=== PATIENT | male | born 1950 | race Two or more races ===

== ENCOUNTER 2017-07-29 05:56 | Inpatient (IN) | payer BC, MEDICARE ==
[2017-07-26 13:54] LABS: HEMATOCRIT 42.2 % (39.2-51.8); HEMOGLOBIN 13.8 g/dL (13.7-18.0); WHITE BLOOD COUNT 8.1 x10^3/uL (3.4-10)
[2017-07-26 14:05] LABS: BLOOD UREA NITROGEN 11 mg/dL (7-18)
[2017-07-26 14:08] LABS: ASPARTATE AMINO TRANSFERASE 13 U/L (15-37)
[~2017-07-29] VITALS: Ht 172.7 cm; Wt 68.0 kg
[~2017-07-29 05:56] MED LIST: ASPI-496 PO; ATOR20TA PO; CLOP75TA52 PO; LOSA25TA5 PO; METF500T4 PO
[2017-07-29] MEDS ORDERED: LACTATED RINGERS 1,000 ML IV SCH (06:42)
[2017-07-29] MEDS ORDERED: THROMBIN 20,000 UNIT VIAL TP ONE (06:52)
[2017-07-29] MEDS ORDERED: BUPIVACAINE/PF 0.5% ONE (06:52)
[2017-07-29] MEDS ORDERED: LIDOCAINE 1%, 50ML ONE (06:52)
[2017-07-29] MEDS ORDERED: PAPAVERINE 30 MG/ML, 2ML ONE (06:52)
[2017-07-29] MEDS ORDERED: HEPARIN 1,000 UNITS/ML, 10ML ONE (06:52)
[2017-07-29] MEDS ORDERED: PROTAMINE SULFATE 10 MG/ML, 5ML ONE (06:52)
[2017-07-29] MEDS ORDERED: EPINEPHRINE 1 MG/ML, 1ML ONE (06:52)
[2017-07-29] MEDS ORDERED: BACITRACIN 50,000 UNIT ONE (06:53)
[2017-07-29] MEDS ORDERED: FLU VACC QS2017-18 (36MOS+) UP/PF 0.5 ML IM-VACC ONE (07:00)
[2017-07-29] MEDS ORDERED: PNEUMOCOCCAL 23 VACCINE IM-VACC ONE (07:00)
[2017-07-29] MEDS ORDERED: FENTANYL PF 250 MCG/5ML ONE (07:06)
[2017-07-29] MEDS ORDERED: REMIFENTANIL 2 MG ONE ×2 (07:14→09:30)
[2017-07-29] MEDS ORDERED: PHENYLEPHRINE 10 MG/ML ONE (07:44)
[2017-07-29] MEDS ORDERED: HEPARIN 1,000 UNITS/ML, 10ML IV ONE (08:26)
[2017-07-29] MEDS ORDERED: PROMETHAZINE 25 MG/ML, 1ML IV PRN (08:30)
[2017-07-29] MEDS ORDERED: MEPERIDINE/PF 25MG/0.5ML IVPush PRN (08:30)
[2017-07-29] MEDS ORDERED: ALBUTEROL SULFATE 2.5 MG/3 ML NPPB PRN (08:30)
[2017-07-29] MEDS ORDERED: LORazepam 2 MG/ML, 1ML IVPush PRN (08:30)
[2017-07-29] MEDS ORDERED: HYDROmorphone 1 MG/ML, 1ML IV PRN (08:30)
[2017-07-29] MEDS ORDERED: hydrALAzine 20 MG/ML, 1ML IV PRN (08:30)
[2017-07-29] MEDS ORDERED: ACETAMINOPHEN 325 MG TABLET PO PRN ×2 (08:30→14:00)
[2017-07-29] MEDS ORDERED: OXYcodone 5 MG/5 ML ORAL.SOL UDC PO PRN (08:30)
[2017-07-29] MEDS ORDERED: LABETALOL 5MG/ML, 20ML IV PRN (08:30)
[2017-07-29] MEDS ORDERED: GLYCOPYRROLATE 0.2MG/1ML, 5ML ONE (09:56)
[2017-07-29] MEDS ORDERED: SUCCINYLCHOLINE 20 MG/ML, 10ML ONE (09:56)
[2017-07-29] MEDS ORDERED: DEXAMETHASONE 4 MG/ML, 1ML ONE (09:56)
[2017-07-29] MEDS ORDERED: PROPOFOL 10 MG/ML, 20ML ONE (09:56)
[2017-07-29] MEDS ORDERED: CEFAZOLIN 1,000 MG ONE (09:56)
[2017-07-29] MEDS ORDERED: ONDANSETRON 2MG/ML, 2ML ONE (09:56)
[2017-07-29] MEDS ORDERED: ROCURONIUM 10 MG/ML,10ML ONE (09:56)
[2017-07-29] MEDS ORDERED: NEOSTIGMINE 1 MG/ML, 10ML ONE (09:56)
[2017-07-29] MEDS ORDERED: FENTANYL PF 100 MCG/2ML ONE (10:33)
[2017-07-29] MEDS ORDERED: ACETAMINOPHEN 325 MG TABLET ONE (10:33)
[2017-07-29] MEDS ORDERED: ACETAMINOPHEN 650 MG/20.3 ML UDC ONE (10:33)
[2017-07-29] MEDS ORDERED: OXYcodone 5 MG/5 ML ORAL.SOL UDC ONE (10:34)
[2017-07-29] MEDS: FENTANYL PF 100 MCG/2ML IV PRN ×4 (10:38→11:40)
[2017-07-29] MEDS ORDERED: hydrALAzine 20 MG/ML, 1ML ONE (10:44)
[2017-07-29 13:30] VITALS: BP 134/78
[2017-07-29] MEDS ORDERED: morphine SULFATE 10 MG/ML, 1ML IV PRN (14:00)
[2017-07-29] MEDS ORDERED: LABETALOL 5MG/ML, 20ML IVPush PRN (14:00)
[2017-07-29] MEDS ORDERED: PHENYLEPHRINE 10 MG in DEXTROSE 5% 249 ML IV SCH (14:00)
[2017-07-29] MEDS ORDERED: ONDANSETRON 2MG/ML, 2ML IV PRN (14:00)
[2017-07-29] MEDS ORDERED: NITROPRUSSIDE 50 MG in DEXTROSE 5% 248 ML IV SCH (14:00)
[2017-07-29] MEDS ORDERED: ENTER SLIDING SCALE INSULIN IF ORDERED XX PRN (14:00)
[2017-07-29] MEDS: D5%-0.45NACL+KCL 20MEQ 1,000 ML IV SCH (15:47)
[2017-07-29] MEDS: ENOXAPARIN 40 MG/0.4 ML SQ SCH (15:48)
[2017-07-29] MEDS: INSULIN REGULAR, HUMAN 100 UNIT/ML 3ML VIAL LOW DOSE SS SQ-INSULIN SCH ×2 (15:50→22:00)
[2017-07-29] MEDS: HYDROcodone/APAP 5/325 TABLET PO PRN (20:11)
[2017-07-29 20:32] VITALS: BP 134/74
[2017-07-29] MEDS ORDERED: ATORVASTATIN 20 MG TABLET PO SCH (21:00)
[2017-07-29] MEDS: SODIUM CHLORIDE FLUSH 10ML SYR IVF SCH (21:00)
[2017-07-29] MEDS: LOSARTAN 25MG TABLET PO SCH (22:16)
[2017-07-29 22:20] VITALS: BP 154/73
[2017-07-30] MEDS: D5%-0.45NACL+KCL 20MEQ 1,000 ML IV SCH ×2 (00:30→10:38)
[2017-07-30 01:34] VITALS: BP 162/78
[2017-07-30] MEDS: HYDROcodone/APAP 5/325 TABLET PO PRN ×4 (01:39→16:06)
[2017-07-30 02:38] VITALS: BP 157/77
[2017-07-30 05:09] VITALS: BP 122/60
[2017-07-30] MEDS ORDERED: ASPIRIN 81 MG TABLET EC PO SCH (06:00)
[2017-07-30] MEDS: INSULIN REGULAR, HUMAN 100 UNIT/ML 3ML VIAL LOW DOSE SS SQ-INSULIN SCH ×3 (07:09→16:18)
[2017-07-30 07:58] VITALS: BP 131/70
[2017-07-30] MEDS: LOSARTAN 25MG TABLET PO SCH (08:43)
[2017-07-30] MEDS: SODIUM CHLORIDE FLUSH 10ML SYR IVF SCH (08:55)
[2017-07-30] MEDS ORDERED: CLOPIDOGREL 75 MG TABLET PO SCH (09:00)
[2017-07-30 12:02] VITALS: BP 146/74
[2017-07-30] MEDS: ENOXAPARIN 40 MG/0.4 ML SQ SCH (16:07)
[2017-07-30] MEDS ORDERED: HYDR-3240 PO (18:38)
[2017-07-30] MEDS ORDERED: ONDA4TAB7 PO (18:39)
[2017-07-30] MEDS ORDERED: DOCU-131 PO (18:39)
[2017-07-30 19:14] VITALS: BP 173/76
== END 2017-07-30 19:25 | disposition home or self-care (01) | DRG 39 ==
LOC: ORIP 05:56 → EDSTATUS 07:30 → 4NOR 13:11
PROVIDERS: ADMIT Surgery; ATTEND Surgery
PROC: 03UL0JZ Supplement Left Internal Carotid Artery with Synthetic Substitute, Open Approach (ICD-10-PCS; 2017-07-29)
PROC: 03CL0ZZ Extirpation of Matter from Left Internal Carotid Artery, Open Approach (ICD-10-PCS; principal; 2017-07-29 07:30)
DX: I65.22 Occlusion and stenosis of left carotid artery (principal); E11.9 Type 2 diabetes mellitus without complications; I10 Essential (primary) hypertension; Z86.73 Personal history of transient ischemic attack (TIA), and cerebral infarction without residual deficits; Z90.49 Acquired absence of other specified parts of digestive tract
CPT/HCPCS: 36415; 80053; 82962; 85025; 86850; 86900; 93005; 95938; 95941; J0171; J0690; J1100; J1644; J1650; J1815; J2405; J2704; J2710; J2720; J3010; J3490; C1768; J0330; J0360; J2270; J2370; J2440; J3480; J7120

== ENCOUNTER → 2018-08-28 | Outpatient (CLI) | payer MEDICARE, OTHER ==
[~2018-08-28] MED LIST changes: +AMLO-150 PO; +DOCU-131 PO; +HYDR-3240 PO; +LOSA25TA25 PO; -LOSA25TA5 PO; +METF500T17 PO; -METF500T4 PO; +MULT-718 PO; +ONDA4TAB7 PO
[2018-08-28 11:55] LABS: ALBUMIN 3.8 g/dL (3.4-5.0); ANION GAP 8 mmol/L (5-15); CALCIUM 9.1 mg/dL (8.5-10.1); CHLORIDE 106 mmol/L (98-107)
[2018-08-28 11:59] LABS: ALANINE AMINOTRANSFERASE 27 U/L (12-78); ALKALINE PHOSPHATASE 46 U/L (45-117); BILIRUBIN,TOTAL 0.8 mg/dL (0.2-1.0); CREATININE 0.99 mg/dL (0.7-1.3); TOTAL PROTEIN 7.1 g/dL (6.4-8.2)
== END | disposition home or self-care (01) ==
LOC: STAR 10:44
PROVIDERS: ATTEND Surgery
DX: Z01.818 Encounter for other preprocedural examination (principal); K40.20 Bilateral inguinal hernia, without obstruction or gangrene, not specified as recurrent
CPT/HCPCS: 36415; 80053; 93005

== ENCOUNTER 2018-09-07 10:08 | Day surgery (SDC) | payer MEDICARE, OTHER ==
[2018-08-28 11:11] VITALS: BP 169/93
[~2018-09-07] VITALS: Ht 172.7 cm; Wt 70.0 kg
[~2018-09-07 10:08] MED LIST changes: +BUPIVACAINE/PF-EPI 0.5% 1:200K ONE
[2018-09-07] MEDS ORDERED: LACTATED RINGERS 1,000 ML IV SCH (10:30)
[2018-09-07] MEDS ORDERED: FENTANYL PF 250 MCG/5ML ONE (13:13)
[2018-09-07] MEDS ORDERED: DEXAMETHASONE 4 MG/ML, 1ML ONE (13:26)
[2018-09-07] MEDS ORDERED: ROCURONIUM 10MG/ML,5ML ONE (13:26)
[2018-09-07] MEDS ORDERED: CEFAZOLIN 1,000 MG ONE (13:26)
[2018-09-07] MEDS ORDERED: PROPOFOL 10 MG/ML, 20ML ONE (13:26)
[2018-09-07] MEDS ORDERED: ONDANSETRON 2MG/ML, 2ML ONE (13:51)
[2018-09-07] MEDS ORDERED: BUPIVACAINE/PF-EPI 0.5% 1:200K INFIL ONE (13:53)
[2018-09-07] MEDS ORDERED: BUPIVACAINE/PF-EPI 0.5% 1:200K ONE (13:59)
[2018-09-07] MEDS ORDERED: ONDANSETRON 2MG/ML, 2ML IV PRN (14:00)
[2018-09-07] MEDS ORDERED: hydrALAzine 20 MG/ML, 1ML IV PRN (14:00)
[2018-09-07] MEDS ORDERED: ACETAMINOPHEN 325 MG TABLET PO PRN (14:00)
[2018-09-07] MEDS ORDERED: MEPERIDINE/PF 25MG/0.5ML IVPush PRN (14:00)
[2018-09-07] MEDS ORDERED: FENTANYL PF 100 MCG/2ML IV PRN (14:00)
[2018-09-07] MEDS ORDERED: OXYcodone 5 MG/5 ML ORAL.SOL UDC PO PRN ×2 (14:00→14:30)
[2018-09-07] MEDS ORDERED: PROMETHAZINE 25 MG/ML, 1ML IV PRN (14:00)
[2018-09-07] MEDS ORDERED: HYDROmorphone 2 MG/ML, 1ML IVPush PRN (14:00)
[2018-09-07] MEDS ORDERED: LABETALOL 5MG/ML, 20ML IV PRN (14:00)
[2018-09-07] MEDS ORDERED: KETOROLAC 30 MG/1 ML ONE (14:02)
[2018-09-07] MEDS ORDERED: GLYCOPYRROLATE 0.4 MG/2 ML, 2ML ONE (14:14)
[2018-09-07] MEDS ORDERED: NEOSTIGMINE 1 MG/ML, 10ML ONE (14:14)
[2018-09-07] MEDS ORDERED: ONDANSETRON 2MG/ML, 2ML IVPush PRN (14:30)
[2018-09-07] MEDS ORDERED: FENTANYL PF 100 MCG/2ML ONE (14:41)
[2018-09-07] MEDS ORDERED: OXYcodone 5 MG/5 ML ORAL.SOL UDC ONE (14:41)
== END 2018-09-07 17:25 | disposition home or self-care (01) ==
LOC: OUT 10:08
PROVIDERS: ATTEND Surgery
DX: K40.90 Unilateral inguinal hernia, without obstruction or gangrene, not specified as recurrent (principal); E11.9 Type 2 diabetes mellitus without complications; I10 Essential (primary) hypertension; Z98.890 Other specified postprocedural states; Z88.0 Allergy status to penicillin; Z79.84 Long term (current) use of oral hypoglycemic drugs
CPT/HCPCS: 49650; 82962; C1781; J0690; J1100; J1885; J2405; J2704; J2710; J3010; J7120; S2900